=== PATIENT | female | born 1970 | race Caucasian/White ===

== ENCOUNTER 2023-04-23 12:51 | Emergency (ER) | payer OTHER, MEDICAID, SELFPAY ==
[2023-04-23] VITALS (9 sets, daily range): BP systolic 133–145; BP diastolic 77–99; PULSE 60–77; RESP 14–16; TEMP 36.4; O2SAT 92–99; BMI 16.1
--- NOTE | 2023-04-23 12:59 | DI.CT.S_ITS ---
PROCEDURE: CT LE LT W CON INDICATIONS: knee injury/pain - left TECHNIQUE: Noncontrast 1-1.5 mm axial sections acquired from the mid-patella to the proximal tibia, with coronal and sagittal reformats. COMPARISON: None. FINDINGS: Image quality: Excellent. Bones: Acute comminuted fracture involving proximal tibia is seen with fracture lines extending to both medial and lateral tibial plateau. Fracture line is also seen extending to involve base of tibial spine near ACL and PCL insertions. There is significant posterior and inferior displacement of the lateral tibial plateau fragment with up to 1.2 cm depression at lateral tibial plateau fracture site. There is also slight medial displacement of the medial tibial plateau fractured fragment without significant depression. No other fracture is seen. No Soft tissues: There is moderate amount of lipohemarthrosis. No calcified intra-articular loose bodies. No full-thickness quadriceps tendon or patellar tendon rupture. ACL is not well seen on this study. The PCL is grossly intact. No abnormal soft tissue calcifications are seen. IMPRESSION: 1. Acute comminuted and displaced proximal tibial fracture as described in detail above. 2. No other fracture or dislocation. 3. Moderate lipohemarthrosis. No abnormal soft tissue calcifications. Dictated by: Grant Gurrola M.D. on 04/23/2023 at 15:07 Approved by: Grant Gurrola M.D. on 04/23/2023 at 15:10
--- NOTE | 2023-04-23 13:01 | ED.EXTPRO ---
HPI - Extremity Problem General Chief complaint: Extremity Injury, Lower Stated complaint: Fall, 2-3 feet, left leg injury Time Seen by Provider: 04/23/23 12:57 History of Present Illness HPI Narrative: Patient brought in by ambulance from home. Complains of left anterior knee pain and swelling and bruising. Patient was on a 3-4 foot ladder, working in the rain, lost her balance and fell to the right, however she thinks her left foot and leg got stuck on the ladder and she fell to the right, twisting her knee. She does not recall landing on her left knee. Patient received 10 mg of morphine intramuscular by EMS. Patient position of comfort is in a left knee flexed at 90? with pillows underneath it. Hip is flexed as well 90? upward. Shoe and sock off. Left hip to toes exposed. Patient denies any other pain or injury, no head pain neck pain back pain abdominal pain. Related Data Allergies Allergy/AdvReac Type Severity Reaction Status Date / Time No Known Drug Allergies Allergy Verified 04/23/23 13:02 Review of Systems Review of Systems Narrative: GENERAL: negative chills, fatigue, malaise, fever, sweats. HEENT: negative sinus pain, ear pain, sore throat RESPIRATORY: negative dyspnea, cough CARDIOVASCULAR: negative chest pain, palpitations GASTROINTESTINAL: negative nausea, vomiting, abdominal pain : negative dysuria, frequency, hematuria MUSCULOSKELETAL: Positive muscle or bony pain SKIN: negative rash, skin lesions NEUROLOGIC: negative weakness, numbness ROS Unobtainable: All systems reviewed & are unremarkable except as noted in HPI and below Patient History Social History Smoking Status: Never smoker Exam Narrative Exam Narrative: GENERAL: in no distress, not toxic not dyspneic HEAD: Normocephalic. Atraumatic EXTREMITIES: No gross deformities. Left lower extremity exposed. They are diffuse anterior bruising to the knee. Diffuse tenderness. There is moderate edema anteriorly. Nontender ankle and foot and hip. Able to flex and extend at the ankle without pain. Foot is warm soft and pink strong pedal pulse light touch intact to foot and toes. Able to wiggle toes. At this time patient position of comfort is with leg in the air and knee at 90? with blankets underneath. Patient will need better pain control to bring knee to extension. NEURO: AOx4. SKIN: Warm and dry PSYCH: Not anxious, is cooperative Initial Vital Signs Initial Vital Signs: Vital Signs Temperature 97.5 F L 04/23/23 12:55 Pulse Rate 69 04/23/23 12:55 Respiratory Rate 14 04/23/23 12:55 Blood Pressure 141/90 H 04/23/23 12:55 Pulse Oximetry 99 04/23/23 12:55 Oxygen Delivery Method Room Air 04/23/23 12:55 Procedures Orthopedic Splinting/Casting Injury #1: Time of procedure: 16:30 Side: left Lower Extremity Injury Location: knee Lower Extremity Immobilizer: knee immobilizer Post splinting neuro exam: intact and no change Post splinting vascular exam: no change Placed by: Nursing Course Orders Ordered: ED Orders 04/23/23 12:59 CT LE LT wo con Stat 04/23/23 15:30 COVID19 - ADMIT (MEMORANDUM STATEMENT CLERK swab/PCR) Stat 04/23/23 15:48 COVID19 -Nasal RAPID Stat Discontinued Medications Fentanyl (Fentanyl 100 Mcg/2 Ml Inj) 100 mcg IV NOW ONE Stop: 04/23/23 13:33 Last Admin: 04/23/23 13:36 Dose: 100 mcg Documented By: TC Fentanyl (Fentanyl 100 Mcg/2 Ml Inj) 100 mcg IV NOW ONE Stop: 04/23/23 16:13 Last Admin: 04/23/23 16:17 Dose: 100 mcg Documented By: TC Hydromorphone HCl (Hydromorphone 1 Mg Inj) 1 mg IV NOW ONE Stop: 04/23/23 12:59 Last Admin: 04/23/23 13:22 Dose: 1 mg Documented By: TC Ondansetron HCl (Ondansetron 4 Mg Odt) 4 mg SL NOW ONE Stop: 04/23/23 12:59 Last Admin: 04/23/23 13:22 Dose: 4 mg Documented By: TC Vital Signs Vital signs: Vital Signs - 8 hr 04/23/23 12:55 04/23/23 12:55 04/23/23 12:55 Temperature 97.5 F L Pulse Rate 69 66 Respiratory Rate 14 Blood Pressure 141/90 H 141/90 H Pulse Oximetry 99 97 Oxygen Delivery Method Room Air 04/23/23 14:14 04/23/23 14:15 04/23/23 14:15 Temperature Pulse Rate 60 60 Respiratory Rate Blood Pressure 133/85 Pulse Oximetry 95 95 Oxygen Delivery Method 04/23/23 14:30 04/23/23 15:00 04/23/23 15:30 Temperature Pulse Rate 63 61 60 Respiratory Rate 16 16 Blood Pressure 134/84 134/99 H 141/77 H Pulse Oximetry 92 97 97 Oxygen Delivery Method 04/23/23 16:00 04/23/23 16:00 04/23/23 16:30 Temperature Pulse Rate 76 77 Respiratory Rate 16 16 Blood Pressure 145/79 H 140/81 Pulse Oximetry 93 Oxygen Delivery Method Room Air 04/23/23 16:30 04/23/23 16:47 Temperature Pulse Rate 70 Respiratory Rate 16 Blood Pressure 140/81 Pulse Oximetry 94 Oxygen Delivery Method Room Air MDM - Extremity (Nontraumatic) Lab Data Labs: Lab Results 04/23/23 Range/Units 15:48 SARS-CoV-2 (PCR) Negative (Negative) Imaging Data Extremity x-ray #1: Radiologist's Impression: [place] [address] CT Scan Report Signed Patient: Jeni Fan MR#: [id number] : 1970 Acct:[id number] Age/Sex: 52 / F Date of Service: 04/23/23 Loc: ED Accession Number: [id number] Procedure: CT LE LT wo con Ordering Provider: Kenan Delgado MD PROCEDURE: CT LE LT W CON INDICATIONS: knee injury/pain - left TECHNIQUE: Noncontrast 1-1.5 mm axial sections acquired from the mid-patella to the proximal tibia, with coronal and sagittal reformats. COMPARISON: None. FINDINGS: Image quality: Excellent. Bones: Acute comminuted fracture involving proximal tibia is seen with fracture lines extending to both medial and lateral tibial plateau. Fracture line is also seen extending to involve base of tibial spine near ACL and PCL insertions. There is significant posterior and inferior displacement of the lateral tibial plateau fragment with up to 1.2 cm depression at lateral tibial plateau fracture site. There is also slight medial displacement of the medial tibial plateau fractured fragment without significant depression. No other fracture is seen. No Soft tissues: There is moderate amount of lipohemarthrosis. No calcified intra-articular loose bodies. No full-thickness quadriceps tendon or patellar tendon rupture. ACL is not well seen on this study. The PCL is grossly intact. No abnormal soft tissue calcifications are seen. IMPRESSION: 1. Acute comminuted and displaced proximal tibial fracture as described in detail above. 2. No other fracture or dislocation. 3. Moderate lipohemarthrosis. No abnormal soft tissue calcifications. Dictated by: Grant Gurrola M.D. on 04/23/2023 at 15:07 Approved by: Grant Gurrola M.D. on 04/23/2023 at 15:10 [facility] Narrative Medical decision making narrative: Patient brought in by ambulance from home. Complains of left anterior knee pain and swelling and bruising. Patient was on a 3-4 foot ladder, working in the rain, lost her balance and fell to the right, however she thinks her left foot and leg got stuck on the ladder and she fell to the right, twisting her knee. She does not recall landing on her left knee. Patient received 10 mg of morphine intramuscular by EMS. Patient position of comfort is in a left knee flexed at 90? with pillows underneath it. Hip is flexed as well 90? upward. Shoe and sock off. Left hip to toes exposed. Patient denies any other pain or injury, no head pain neck pain back pain abdominal pain. After history and exam Dilaudid Zofran CT left knee MDM CC: Left knee pain Complicating co-morbidities: None, patient not on blood thinners Data collected from: Patient and EMS Medical records reviewed: No recent visit for this complaint Differential considered: Includes but not limited to patellar fracture/dislocation, knee fracture/dislocation, internal ligamentous injury knee sprain knee strain Exam documented above, pertinent findings include: Limited range of motion at the knee, diffuse ecchymosis of the anterior knee Imaging studies independently reviewed: CT left lower extremity/knee medial/lateral tibial plateau fractures Consultations: 3:48 p.m.. Spoke with [facility] Dr. Nielson, he will accept patient Treatments: Dilaudid Zofran fentanyl Re-evaluations: 3:50 p.m.. Spoke with patient and . Pain is controlled. They understand this is a complicated needs higher level of care surgical intervention. They do understand need to transfer to [facility] Emergency Department Discussion: Appropriate for transfer higher level of care for orthopedic care. Diagnosis: Tibial plateau fracture Discharge Plan Departure Patient Disposition: [facility] Clinical Impression: Fracture of tibial plateau, closed Qualifiers: Encounter type: initial encounter Laterality: left Qualified Code(s): S82.142A - Displaced bicondylar fracture of left tibia, initial encounter for closed fracture Referrals: Miscellaneous,DoctorMD [Primary Care Provider] -
[2023-04-23] MEDS: HYDROMORPHONE 1 MG INJ IV (13:22)
[2023-04-23] MEDS: ONDANSETRON 4 MG ODT SL (13:22)
[2023-04-23] MEDS: fentaNYL 100 MCG/2 ML INJ IV ×2 (13:36→16:17)
--- NOTE | 2023-04-23 15:32 | PC.NURSE ---
RN discussed with patient the possibility of needing a Moon catheter due to the severity of fracture and the pain that may occur during moving while trying to get on and off bed chaudhry. Patient would like to wait until she has knee immobilizer placed to determine weather or not is would be possible to use bed cahudhry.
[2023-04-23 16:10] LABS: COVID19 -Nasal RAPID Negative (Negative)
== END 2023-04-23 17:00 | disposition short-term general hospital (02) ==
PROVIDERS: Emergency Provider Emergency Medicine
DX: S82.142A Displaced bicondylar fracture of left tibia, initial encounter for closed fracture (principal); W11.XXXA Fall on and from ladder, initial encounter; Z20.822 Contact with and (suspected) exposure to COVID-19
CPT/HCPCS: 73700; 87635; 96374; 96375; 96376; 99284; C9803; J1170; J3010

== ENCOUNTER 2023-05-20 18:00 | Emergency (ER) | payer OTHER, MEDICAID, SELFPAY ==
--- NOTE | 2023-05-20 18:13 | ED_ITS ---
HPI - Allergic Reaction <Sj Tellez PA-C - Last Filed: 05/20/23 18:38> General Chief complaint: Allergic Reaction Stated complaint: POSSIBLE REACTION TO MEDICATION Time Seen by Provider: 05/20/23 18:13 History of Present Illness HPI narrative: This is a 52-year-old female presents emergency department due to possible allergic reaction and Robaxin she was prescribed. She was seen at [facility] for tibial plateau fracture a month ago and was discharged with Robaxin. She is been taking for the last month complications but after taking last night states that tongue felt swollen. This quickly improved with the in treatment. Due took another Robaxin and she states that the other half her tongue swelled which also improved without treatment quickly. She does state that she tried a new not snack as well as apple. She reports a mild rash to the back of her head with some itching. Denies any shortness of breath, difficulty breathing or swallowing. Related Data Home Medications Medication Instructions Recorded Confirmed acetaminophen 500 mg tablet 1,000 mg PO Q6HR 05/20/23 05/22/23 Previous Rx's Medication Instructions Recorded diphenhydramine HCl 25 mg capsule 50 mg (2 x 25 mg) PO TID PRN 05/20/23 (Benadryl) allergic reaction #6 caps prednisone 20 mg tablet 40 mg (2 x 20 mg) PO DAILY #6 tabs 05/22/23 Allergies Allergy/AdvReac Type Severity Reaction Status Date / Time methocarbamol [From Robaxin] Allergy Swelling Verified 05/22/23 11:32 of Lip/Tongue/Throat Review of Systems <Sj Tellez PA-C - Last Filed: 05/20/23 18:38> Review of Systems Narrative: GENERAL: Denies chills, fatigue, malaise, fever, sweats. HEENT: Denies sinus pain, ear pain, sore throat, difficulty swallowing, dizziness. RESPIRATORY: Denies dyspnea, cough, wheezing, hemoptysis, sputum. CARDIOVASCULAR: Denies chest pain, palpitations, orthopnea, edema, GASTROINTESTINAL: Denies nausea, vomiting, abdominal pain, diarrhea, constipation, melena. : Denies dysuria, frequency, incontinence, hematuria, urinary retention. MUSCULOSKELETAL: denies weakness, joint pain, or bony pain SKIN: Reports rash NEUROLOGIC: Denies weakness, headache, numbness, change in speech, confusion, seizures, incoordination. PSYCHIATRIC: No concerning psychosocial issues. 12 point review of systems is negative except for those stated above Patient History <Sj Tellez PA-C - Last Filed: 05/20/23 18:38> Social History Smoking Status: Never smoker Smoking Status: Never smoker alcohol intake frequency: 0-2 drinks per day Substance Use Type: does not use Exam <Sj Tellez PA-C - Last Filed: 05/20/23 18:38> Narrative Exam Narrative: GENERAL: Well-developed patient, in mild distress. HEAD: Atraumatic. Normocephalic. EYES: Pupils equal round and reactive. Extraocular motions intact. No scleral icterus. No injection or drainage. ENT: Nose without bleeding, purulent drainage. Throat without erythema, tonsillar hypertrophy or exudate. Airway patent. NECK: Trachea midline. Non tender CARDIOVASCULAR: Regular rate and rhythm without murmurs, gallops, or rubs. RESPIRATORY: Clear to auscultation. Breath sounds equal bilaterally. No wheezes, rales, or rhonchi. GASTROINTESTINAL: Abdomen soft, non-tender, nondistended. EXTREMITIES: No edema or joint tenderness. BACK: Nontender without deformity or crepitance. No flank tenderness. NEURO: AOx3. SKIN: Very small amount of erythema to the posterior neck Initial Vital Signs Initial Vital Signs: Vital Signs Temperature 98 F 05/20/23 18:17 Pulse Rate 101 H 05/20/23 18:17 Respiratory Rate 18 05/20/23 18:17 Blood Pressure 181/110 H 05/20/23 18:17 Pulse Oximetry 99 05/20/23 18:17 Oxygen Delivery Method Room Air 05/20/23 18:17 <Kenan Delgado MD - Last Filed: 06/08/23 07:48> Initial Vital Signs Initial Vital Signs: Vital Signs Temperature 98 F 05/20/23 18:17 Pulse Rate 101 H 05/20/23 18:17 Respiratory Rate 18 05/20/23 18:17 Blood Pressure 181/110 H 05/20/23 18:17 Pulse Oximetry 99 05/20/23 18:17 Oxygen Delivery Method Room Air 05/20/23 18:17 Course <Sj Tellez PA-C - Last Filed: 05/20/23 18:38> Orders Ordered: Discontinued Medications Diphenhydramine HCl (Diphenhydramine 25 Mg Tablet) 25 mg PO NOW ONE Stop: 05/20/23 18:27 Last Admin: 05/20/23 18:30 Dose: 25 mg Documented By: ES Vital Signs Vital signs: Vital Signs - 8 hr 05/20/23 18:17 Temperature 98 F Pulse Rate 101 H Respiratory Rate 18 Blood Pressure 181/110 H Pulse Oximetry 99 Oxygen Delivery Method Room Air <Kenan Delgado MD - Last Filed: 06/08/23 07:48> Orders Ordered: Discontinued Medications Diphenhydramine HCl (Diphenhydramine 25 Mg Tablet) 25 mg PO NOW ONE Stop: 05/20/23 18:27 Last Admin: 05/20/23 18:30 Dose: 25 mg Documented By: ES Vital Signs Vital signs: Vital Signs - 8 hr 05/20/23 18:17 Temperature 98 F Pulse Rate 101 H Respiratory Rate 18 Blood Pressure 181/110 H Pulse Oximetry 99 Oxygen Delivery Method Room Air MDM - Allergic Reaction <Sj Tellez PA-C - Last Filed: 05/20/23 18:38> MDM Narrative Medical decision making narrative: MDM * differential diagnosis includes but not limited to allergic reaction * Prior records reviewed: Patient was seen here a month ago to a tibial plateau fracture. * My lab interpretation: None obtained * My imgaing interpretation: None obtained * Clinical Decision Rules/Scores evaluated: None * Independent discussions with: None ED Course: This is a 52-year-old female presents for department due to possible allergic reaction after taking Robaxin. Her symptoms of quickly improve without treatment. We will give a 1 time dose of Benadryl here as well as instructions to take Benadryl for next 24 hours at home. No difficulty breathing or swallowing. Recommended she stopped taking the Robaxin which patient feels alber ropriate. Shared Decision Making: Discussed plan with patient who is comfortable with the plan Social Considerations: None Disposition: Discharged to home Discharge Plan Departure Patient Disposition: Home Clinical Impression: Allergic reaction Activity Restrictions/Additional Instructions: Thank you for coming to the [facility] Emergency Department today. Seems that you may have had an allergic reaction to the Robaxin your prescribed. I recommend you start taking. Please take the Benadryl as prescribed. This is the medication to [facility] in her [place]. It is 50 mg 3 times a day. You may also take [id number]. I hope you feel better soon. Please follow up with your primary care provider within a week if your symptoms continue. If you do not have a primary care provider please contact the [facility] Resource line at [phone]. They will ask some questions about your medical history and help you get set up with a provider in the community. Prescriptions: New diphenhydramine HCl [Benadryl] 25 mg capsule 50 mg PO TID PRN (Reason: allergic reaction) Qty: 6 0RF No Action acetaminophen 500 mg tablet 1,000 mg PO Q6HR prednisone 20 mg tablet 40 mg PO DAILY Qty: 6 0RF Referrals: Miscellaneous,DoctorMD [Primary Care Provider] - Stand Alone Forms: Patient Portal/API ED Sign-out <Kenan Delgado MD - Last Filed: 06/08/23 07:48> [facility]: I was immediately available in the department for consultation. This documentation has been reviewed and I agree with assessment and plan. Supervised by Kenan Delgado MD
[2023-05-20 18:17] VITALS: BP 181/110; PULSE 101; RESP 18; TEMP 36.6; O2SAT 99; BMI 30.5
[2023-05-20] MEDS: diphenhydrAMINE 25 MG TABLET PO (18:30)
== END 2023-05-20 19:00 | disposition home or self-care (01) ==
PROVIDERS: Emergency Provider Physician Assistant Medical
DX: T78.40XA Allergy, unspecified, initial encounter (principal)
CPT/HCPCS: 99283

== ENCOUNTER 2023-05-22 11:06 | Emergency (ER) | payer OTHER, MEDICAID, SELFPAY ==
[2023-05-22 11:22] VITALS: BP 129/81; PULSE 94; RESP 20; TEMP 36.8; O2SAT 97; BMI 31.1
[2023-05-22 11:37] VITALS: PULSE 96; O2SAT 98
--- NOTE | 2023-05-22 12:11 | ED.ALLEREA ---
HPI - Allergic Reaction <Yamile Quiñones PA-C - Last Filed: 05/22/23 15:37> General Chief complaint: Allergic Reaction Stated complaint: swelling of face poss alergic reaction Time Seen by Provider: 05/22/23 11:34 Source: patient and family Mode of arrival: Family Vehicle History of Present Illness HPI narrative: Patient is a 52-year-old female who presents with swelling around her mouth and an itchy rash x several days. She recently had a repair of a tibial plateau fracture at [facility] about 1 month ago and has been taking several medications since then for pain. She was seen in the emergency room 2 days ago and diagnosed with an allergic reaction, thought to be due to Robaxin, which she discontinued and she is been taking Benadryl 3 times a day. Despite this, she woke up this morning with significant swelling on the left side of her jaw and over her upper lip. Because the rash has continued, she stopped taking her Tylenol and gabapentin thinking these may be contributing to the rash. The only medication she is been taking now is Benadryl and 2 baby aspirin daily, which was advised by her Orthopedic surgery team. She denies any shortness of breath, difficulty breathing, scratchy throat or nausea. She is very frustrated uncomfortable because of the constant itching and worried about the swelling in her face. Related Data Home Medications Medication Instructions Recorded Confirmed acetaminophen 500 mg tablet 1,000 mg PO Q6HR 05/20/23 05/22/23 Previous Rx's Medication Instructions Recorded diphenhydramine HCl 25 mg capsule 50 mg (2 x 25 mg) PO TID PRN 05/20/23 (Benadryl) allergic reaction #6 caps prednisone 20 mg tablet 40 mg (2 x 20 mg) PO DAILY #6 tabs 05/22/23 Allergies Allergy/AdvReac Type Severity Reaction Status Date / Time methocarbamol [From Robaxin] Allergy Swelling Verified 05/22/23 11:32 of Lip/Tongue/Throat Review of Systems <Yamile Quiñones PA-C - Last Filed: 05/22/23 15:37> Review of Systems ROS Unobtainable: All systems reviewed & are unremarkable except as noted in HPI and below Patient History <Yamile Quiñones PA-C - Last Filed: 05/22/23 15:37> Social History Smoking Status: Never smoker Smoking Status: Never smoker alcohol intake frequency: 0-2 drinks per day Substance Use Type: does not use Exam <Yamile Quiñones PA-C - Last Filed: 05/22/23 15:37> Narrative Exam Narrative: GENERAL: 52 year old patient appears stated age. Well-developed patient, in mild distress. NEURO: AOx3. HEAD: Atraumatic. Normocephalic. EYES: Pupils equal round and reactive. Extraocular motions intact. No scleral icterus. No injection or drainage. ENT: Nose without bleeding or purulent drainage. Throat without erythema, tonsillar hypertrophy or exudate. Airway patent. Swelling over the left lower jaw and over the left upper lip. No tongue swelling, no intraoral lesions. NECK: Trachea midline. Non tender CARDIOVASCULAR: Regular rate and rhythm without murmurs, gallops, or rubs. RESPIRATORY: Clear to auscultation. Breath sounds equal bilaterally. No wheezes, rales, or rhonchi. EXTREMITIES: No edema or joint tenderness. SKIN: Urticarial rash over low back down to buttocks, urticarial rash at hairline of posterior neck. Well-healed surgical scars surrounding left knee. Resolving ecchymosis and diffuse edema of the left lower extremity. No calf tenderness or swelling. Initial Vital Signs Initial Vital Signs: Vital Signs Temperature 98.3 F 05/22/23 11:22 Pulse Rate 94 H 05/22/23 11:22 Respiratory Rate 20 05/22/23 11:22 Blood Pressure 129/81 05/22/23 11:22 Pulse Oximetry 97 05/22/23 11:22 Oxygen Delivery Method Room Air 05/22/23 11:22 <Rhea Wheeler DO - Last Filed: 05/23/23 07:37> Initial Vital Signs Initial Vital Signs: Vital Signs Temperature 98.3 F 05/22/23 11:22 Pulse Rate 94 H 05/22/23 11:22 Respiratory Rate 20 05/22/23 11:22 Blood Pressure 129/81 05/22/23 11:22 Pulse Oximetry 97 05/22/23 11:22 Oxygen Delivery Method Room Air 05/22/23 11:22 Course <Yamile Quiñones PA-C - Last Filed: 05/22/23 15:37> Orders Ordered: Discontinued Medications Prednisone (Prednisone 20 Mg Tablet) 40 mg PO NOW ONE Stop: 05/22/23 12:13 Last Admin: 05/22/23 12:15 Dose: 40 mg Documented By: BS Vital Signs Vital signs: Vital Signs - 8 hr 05/22/23 11:22 05/22/23 11:37 05/22/23 12:32 Temperature 98.3 F Pulse Rate 94 H 96 H 83 Respiratory Rate 20 16 Blood Pressure 129/81 Pulse Oximetry 97 98 99 Oxygen Delivery Method Room Air Room Air Room Air <Rhea Wheeler DO - Last Filed: 05/23/23 07:37> Orders Ordered: Discontinued Medications Prednisone (Prednisone 20 Mg Tablet) 40 mg PO NOW ONE Stop: 05/22/23 12:13 Last Admin: 05/22/23 12:15 Dose: 40 mg Documented By: BS Vital Signs Vital signs: Vital Signs - 8 hr 05/22/23 11:22 05/22/23 11:37 05/22/23 12:32 Temperature 98.3 F Pulse Rate 94 H 96 H 83 Respiratory Rate 20 16 Blood Pressure 129/81 Pulse Oximetry 97 98 99 Oxygen Delivery Method Room Air Room Air Room Air MDM - Allergic Reaction <Yamile Quiñones PA-C - Last Filed: 05/22/23 15:37> MDM Narrative Medical decision making narrative: Multiple etiologies for patient's symptoms considered including, but not limited to: Drug reaction, other allergy, idiopathic urticaria. After much discussion, aspirin seems the most likely culprit to be causing an allergic type reaction with an urticarial rash and angioedema. There is no evidence of airway compromise. I advised patient to stop taking the aspirin and contact her orthopedic clinic to see if they would like her to take a different blood thinner medication. I also prescribed a short course of oral steroids and advised her to take cetirizine twice daily for several days until this improves. I doubt that the Tylenol or gabapentin were causing these symptoms and she may resume them if she desires for pain control of her surgical site. Strict return precautions advised. Patient's symptoms improved over duration of stay with above-stated therapies. Findings and discharge diagnosis discussed with patient/family followed by verbalization of understanding Return precautions discussed with patient/family whom verbalize understanding of diagnosis and plan Discharge Plan Departure Patient Disposition: Home Clinical Impression: Urticaria Allergic reaction Qualifiers: Encounter type: subsequent encounter Qualified Code(s): T78.40XD - Allergy, unspecified, subsequent encounter Angioedema Qualifiers: Encounter type: initial encounter Qualified Code(s): T78.3XXA - Angioneurotic edema, initial encounter Instructions: DI for Anaphylaxis, DI for Hives Activity Restrictions/Additional Instructions: *You have been diagnosed with allergic reaction. I suspect this is due to the aspirin you have been taking. I would stop taking the aspirin and call your orthopedic doctor today and notify them that you were seen in the emergency room; the ER provider thinks this is what was causing your symptoms. Ask if they would like you to take a different blood thinner medicine. I have also given you a dose of steroids while in the emergency room and we will send 3 more days to your pharmacy. Steroids are a good anti-inflammatory medicine and will help decrease the antihistamine reaction that is going on. You should also take Zyrtec 10 mg twice a day for the next 3 days and then once a day after that until the hives and itching has resolved. I believe it is unlikely that the gabapentin or Tylenol are causing the symptoms so if you would like to start taking them again for the pain in your leg you are welcome to. If you develop any wheezing, shortness of breath or difficulty breathing, please return emergently to the ER. *What to do: *Please continue to take your regular medications as directed. [x ] New medication prescriptions sent to your pharmacy: [facility] [ ] New medication written as a paper prescription [ ] No new medications given *Please follow up with your primary care provider in 2-3 days, call for an appointment. Let them know you were seen in the Emergency Department and that we ask that you be seen in follow up. We will electronically transmit a record of today's note if your PCP is in our system *If you do not have a primary care provider please contact the [facility] Resource line at [phone]. They will ask some questions about your medical history and help get you set up with a doctor in the community. *Return to Emergency Department if you should have any new, worsening or concerning symptoms, such as [fever greater than 101 F, shaking chills, worsening pain, persistent vomiting or other concerning symptoms]. Prescriptions: New prednisone 20 mg tablet 40 mg PO DAILY Qty: 6 0RF Discontinued aspirin 81 mg tablet,delayed release (DR/EC) 81 mg PO BID No Action acetaminophen 500 mg tablet 1,000 mg PO Q6HR diphenhydramine HCl [Benadryl] 25 mg capsule 50 mg PO TID PRN (Reason: allergic reaction) Qty: 6 0RF Referrals: Miscellaneous,Doctor, MD [Primary Care Provider] - Stand Alone Forms: Patient Portal/API ED Sign-out <Rhea Wheeler DO - Last Filed: 05/23/23 07:37> Cosign ED Attending Cosskyeature Attestation: I was immediately available in the department for consultation.
[2023-05-22] MEDS: predniSONE 20 MG TABLET 40 MG PO (12:15)
[2023-05-22 12:32] VITALS: PULSE 83; RESP 16; O2SAT 99
== END 2023-05-22 12:33 | disposition home or self-care (01) ==
PROVIDERS: Emergency Provider Physician Assistant
DX: T78.40XA Allergy, unspecified, initial encounter (principal); T78.3XXA Angioneurotic edema, initial encounter
CPT/HCPCS: 99283

== ENCOUNTER 2023-07-24 19:13 | Emergency (ER) | payer OTHER, MEDICAID, SELFPAY ==
[2023-07-24] VITALS (11 sets, daily range): BP systolic 129–155; BP diastolic 88–101; PULSE 70–86; RESP 16–34; TEMP 36.2–36.6; O2SAT 96–99; BMI 31.1
--- NOTE | 2023-07-24 19:23 | ED.GENADULT ---
HPI - General Adult General Chief complaint: Chest Pain Stated complaint: chest pain Time Seen by Provider: 07/24/23 19:17 History of Present Illness HPI narrative: 52-year-old female presents with her in the chief complaint retrosternal chest pressure that has been going off and on since about 4:00 p.m. tonight. She states that she was resting when she developed a sharp and stabbing central chest pain that feels like she has a trapped burp. She states that a successful belch seemed like it resolved her symptoms at least once or twice earlier. Her last episode of discomfort was in the car ride on the way over. She denies any exertional symptoms or fatigue. She denies other symptoms such as dizziness, weakness or lightheadedness. No nausea, vomiting, no diaphoresis. She has been relatively immobile since fracturing her left lower extremity in March, in fact she has an appointment with [facility] tomorrow to determine her ability to weight bear again. She denies any pain or swelling in 1 leg or the other. She denies any recent travel or history of blood clot. Related Data Home Medications Medication Instructions Recorded Confirmed acetaminophen 500 mg tablet 1,000 mg PO Q6HR 05/20/23 05/22/23 Previous Rx's Medication Instructions Recorded diphenhydramine HCl 25 mg capsule 50 mg (2 x 25 mg) PO TID PRN 05/20/23 (Benadryl) allergic reaction #6 caps prednisone 20 mg tablet 40 mg (2 x 20 mg) PO DAILY #6 tabs 05/22/23 Allergies Allergy/AdvReac Type Severity Reaction Status Date / Time acetaminophen [From Tylenol] Allergy Verified 07/24/23 19:22 aspirin Allergy Verified 07/24/23 19:22 ibuprofen Allergy Verified 07/24/23 19:22 methocarbamol [From Robaxin] Allergy Swelling Verified 07/24/23 19:22 of Lip/Tongue/Throat naproxen Allergy Verified 07/24/23 19:22 oxycodone Allergy Swelling Verified 07/24/23 19:37 of Lip/Tongue/Throat gabapentin AdvReac Verified 07/24/23 19:22 Review of Systems Review of Systems Narrative: GENERAL: Denies chills, fatigue, malaise, fever, sweats. HEENT: Denies sinus pain, ear pain, sore throat, difficulty swallowing, dizziness. RESPIRATORY: Denies dyspnea, cough, wheezing, hemoptysis, sputum. CARDIOVASCULAR: See HPI GASTROINTESTINAL: Denies nausea, vomiting, abdominal pain, diarrhea, constipation, melena. : Denies dysuria, frequency, incontinence, hematuria, urinary retention. MUSCULOSKELETAL: denies weakness, joint pain, or bony pain SKIN: Denies rash, skin lesions, or other NEUROLOGIC: Denies weakness, headache, numbness, change in speech, confusion, seizures, incoordination. PSYCHIATRIC: No concerning psychosocial issues. 12 point review of systems is negative except for those stated above Patient History Social History Smoking Status: Never smoker Smoking Status: Never smoker alcohol intake frequency: 0-2 drinks per day Substance Use Type: does not use Exam Narrative Exam Narrative: GENERAL: [52] year old patient appears stated age. Well-developed patient, in mild distress. HEAD: Atraumatic. Normocephalic. EYES: Pupils equal round and reactive. Extraocular motions intact. No scleral icterus. No injection or drainage. ENT: Nose without bleeding, purulent drainage. Throat without erythema, tonsillar hypertrophy or exudate. Airway patent. NECK: Trachea midline. Non tender CARDIOVASCULAR: Regular rate and rhythm without murmurs, gallops, or rubs. RESPIRATORY: Clear to auscultation. Breath sounds equal bilaterally. No wheezes, rales, or rhonchi. GASTROINTESTINAL: Abdomen soft, non-tender, nondistended. EXTREMITIES: No edema or joint tenderness. BACK: Nontender without deformity or crepitance. No flank tenderness. NEURO: AOx3. SKIN: No rash or erythema of visible areas Initial Vital Signs Initial Vital Signs: Vital Signs Temperature 97.2 F L 07/24/23 19:15 Pulse Rate 86 07/24/23 19:15 Respiratory Rate 20 07/24/23 19:15 Blood Pressure 155/98 H 07/24/23 19:15 Pulse Oximetry 98 07/24/23 19:15 Oxygen Delivery Method Room Air 07/24/23 19:15 Course Orders Ordered: ED Orders 07/24/23 19:23 EKG-12 Lead Stat 07/24/23 20:15 Complete Blood Count AUTO DIFF Stat Comprehensive Metabolic Panel Stat D Dimer Stat Lipase Stat Magnesium Stat Troponin & CK Cardiac Panel Stat 07/24/23 20:42 CT angio chest PE protocol Stat Discontinued Medications Al Hydrox/Mg Hydrox/Simethicone 20 ml/ Lidocaine HCl 15 ml 0 ml PO NOW ONE Stop: 07/24/23 19:23 Last Admin: 07/24/23 19:41 Dose: 35 ml Documented By: ALPA Vital Signs Vital signs: Vital Signs - 8 hr 07/24/23 20:00 07/24/23 20:00 07/24/23 20:30 Temperature Pulse Rate 78 Respiratory Rate 33 H Blood Pressure 146/89 H 150/99 H Pulse Oximetry 97 Oxygen Delivery Method Room Air 07/24/23 20:30 07/24/23 21:13 07/24/23 21:30 Temperature Pulse Rate 78 79 Respiratory Rate 34 H 24 Blood Pressure 147/101 H Pulse Oximetry 97 97 Oxygen Delivery Method Room Air 07/24/23 21:30 07/24/23 22:00 07/24/23 22:00 Temperature Pulse Rate 78 80 Respiratory Rate 22 22 Blood Pressure 134/91 H Pulse Oximetry 97 96 Oxygen Delivery Method 07/24/23 22:30 07/24/23 22:30 07/24/23 23:00 Temperature Pulse Rate 80 76 Respiratory Rate 16 18 Blood Pressure 129/88 Pulse Oximetry 96 Oxygen Delivery Method Room Air 07/24/23 23:04 Temperature 97.8 F Pulse Rate 70 Respiratory Rate 16 Blood Pressure 129/88 Pulse Oximetry 99 Oxygen Delivery Method Room Air Medical Decision Making Lab Data 07/24/23 20:15 07/24/23 20:15 Labs: Lab Results 07/24/23 Range/Units 20:15 WBC 14.8 H (4.5-11.0) X10^3/uL RBC 5.63 H (4.0-5.2) X10^6/uL Hgb 13.3 (12.0-16.0) g/dL Hct 41.5 (36-46) % MCV 73.7 L (80-100) fL MCH 23.6 L (26-34) PG MCHC 32.0 (30-36) % RDW 16.7 H (11.6-14.8) % Plt Count 404 H (150-400) X10^3/uL Neut % (Auto) 77.4 H (50-75) % Lymph % (Auto) 13.1 L (25-40) % [place] % (Auto) 7.1 (3-14) % Eos % (Auto) 1.7 L (2-4) % Baso % (Auto) 0.7 (0-2) % Neut # (Auto) 25305 H (4143-7272) /uL Lymph # (Auto) 1900 (3564-2435) /uL [place] # (Auto) 1000 H (0-900) /uL Eos # (Auto) 200 (0-450) /uL Baso # (Auto) 100 (0-100) /uL D-Dimer 2630 H (<500) ng/ml Sodium 137 (137-145) mmol/L Potassium 4.2 (3.4-5.1) mmol/L Chloride 103 (98-107) mmol/L Carbon Dioxide 26 (22-32) mmol/L BUN 17 (7-17) mg/dL Creatinine 0.61 (0.52-1.04) mg/dL Estimated GFR > 60 (>60) mL/min BUN/Creatinine Ratio 27.9 H (6-22) Glucose 100 (70-100) mg/dL Calcium 9.5 (8.4-10.2) mg/dL Magnesium 1.8 (1.6-2.3) mg/dL Total Bilirubin 0.6 (0.2-1.3) mg/dL AST 25 (14-36) IU/L ALT 25 (<35) IU/L Alkaline Phosphatase 86 (38-126) U/L Total Creatine Kinase 31 (30-135) U/L Troponin I < 0.012 (0.01-0.034) ng/mL Total Protein 8.0 (6.3-8.2) g/dL Albumin 4.3 (3.5-5.0) g/dL Globulin 3.7 (1.7-4.1) g/dL Albumin/Globulin Ratio 1.2 (1.0-2.8) Lipase 45 (23-300) U/L ECG Data Interpretation: [1940] EKG is normal sinus rhythm rate [ 79] and free of any signs of ischemia or ectopy. No ST segmental elevation or depression. No T wave inversions MDM Narrative Medical decision making narrative: CC: 52-year-old female presents with episodes of sharp and stabbing central chest pain that comes and goes without obvious provocation or palliation Complicating co-morbidities: Recent orthopedic injury and immobilization Data collected from: Patient Medical records reviewed: Prior notes reviewed in our EMR Differential considered, but not limited to: Esophageal spasm versus reflux versus pancreatitis versus gallbladder disease versus pulmonary embolism versus cardiac ischemia versus other Exam documented above, pertinent findings include: Patient asymptomatic for duration of visit, heart rate regular, lungs clear, abdomen soft and nontender Lab Test results independently reviewed as above. Pertinent findings: Slight leukocytosis of 14.8 with minimal relative left shift, D-dimer significantly elevated at 2630, electrolytes, renal function, LFTs, lipase all within normal Independently reviewed EKG as above Imaging studies independently reviewed: CT angiogram with PE protocol ordered given chest pain, injury, sedentary level of activity and critically elevated D-dimer Treatments: GI Cocktail Re-evaluations: patient feeling better Discussion: Patient with episodes of central epigastric pain without radiation, possibly worse when eating. Multiple diagnoses considered as noted above. D-dimer is critically elevated but CT angiogram shows no evidence of a PE, however does note inflammation of the distal esophagus which is consistent with patient's history and physical exam. Patient's pain is controlled, she is tolerating orals. Stable vital signs. Patient instructed to avoid spicy foods, acidic foods, alcohol, caffeine, nicotine, take omeprazole daily for the next 2 weeks and follow closely with her doctor. Are related to her that she will likely need an EGD. Return precautions discussed Disposition: see below, along with detailed discharge instructions that have been reviewed with patient as well as indications for ED re-evaluation and additional outpatient follow up Discharge Plan Departure Patient Disposition: Home Clinical Impression: Acute epigastric pain, Esophagitis Instructions: DI for Esophagitis Activity Restrictions/Additional Instructions: *You have been diagnosed with [epigastric pain, as we discussed this is most consistent with esophagitis. *What to do: *Please consider taking Omeprazole daily for the next two weeks. You may also take other [id number] medications such as Maalox and Tums as directed. Please avoid spicy foods, acidic foods, caffeine, alcohol, nicotine as this may worsen your symptoms. *Please follow up with your primary care provider in 2-3 days, call for an appointment. Let them know you were seen in the Emergency Department and that we ask that you be seen in follow up. We will electronically transmit a record of today's note if your PCP is in our system. Return to Emergency Department if you should have any new, worsening or concerning symptoms, such as [fever greater than 101 F, shaking chills, worsening pain, persistent vomiting or other bothersome symptoms] Prescriptions: No Action acetaminophen 500 mg tablet 1,000 mg PO Q6HR diphenhydramine HCl [Benadryl] 25 mg capsule 50 mg PO TID PRN (Reason: allergic reaction) Qty: 6 0RF prednisone 20 mg tablet 40 mg PO DAILY Qty: 6 0RF Referrals: Miscellaneous,Doctor, MD [Primary Care Provider] - Stand Alone Forms: Patient Portal/API
[2023-07-24] MEDS: MAG HYDROX/ALUMINUM/SIMETH SUS 20 ML, LIDOCAINE VISCOUS 2% 15 ML PO (19:41)
[2023-07-24 20:24] LABS: Add Manual Diff / Slide Review NO; Basophils Absolute Auto 100 /uL (0-100); Basophils Percent Auto 0.7 % (0-2); Eosinophils Absolute Auto 200 /uL (0-450); Eosinophils Percent Auto 1.7 % (2-4); Hematocrit 41.5 % (36-46); Hemoglobin 13.3 g/dL (12.0-16.0); Lymphocytes Absolute Auto 1900 /uL (1100-4500); Lymphocytes Percent Auto 13.1 % (25-40); Mean Corpuscular Hemoglobin 23.6 PG (26-34); Mean Corpuscular Volume 73.7 fL (80-100); Monocytes Absolute Auto 1000 /uL (0-900); Monocytes Percent Auto 7.1 % (3-14); Neutrophils Absolute Auto 11400 /uL (1500-7000); Neutrophils Percent Auto 77.4 % (50-75); Platelet Count 404 X10^3/uL (150-400); Red Blood Cell Count 5.63 X10^6/uL (4.0-5.2); Red Cell Distribution Width 16.7 % (11.6-14.8); White Blood Cell Count 14.8 X10^3/uL (4.5-11.0)
[2023-07-24 20:34] LABS: D Dimer 2630 ng/ml (<500)
[2023-07-24 20:37] LABS: Alanine Aminotransferase 25 IU/L (<35); Albumin 4.3 g/dL (3.5-5.0); Albumin Globulin Ratio 1.2 (1.0-2.8); Alkaline Phosphatase 86 U/L (38-126); Aspartate Aminotransferase 25 IU/L (14-36); BUN Creatinine Ratio 27.9 (6-22); Bilirubin Total 0.6 mg/dL (0.2-1.3); Blood Urea Nitrogen 17 mg/dL (7-17); Calcium 9.5 mg/dL (8.4-10.2); Carbon Dioxide 26 mmol/L (22-32); Chloride 103 mmol/L (98-107); Creatine Kinase 31 U/L (30-135); Estimated Glomerular Filt Rate > 60 mL/min (>60); Globulin 3.7 g/dL (1.7-4.1); Glucose 100 mg/dL (70-100); HEMOLYSIS 17 (0-50); Lipase 45 U/L (23-300); Magnesium 1.8 mg/dL (1.6-2.3); Potassium 4.2 mmol/L (3.4-5.1); Sodium 137 mmol/L (137-145)
--- NOTE | 2023-07-24 20:42 | DI.CT.S_ITS ---
PROCEDURE: CT ANGIO CHEST PE PROTOCOL INDICATIONS: chest pain, critical dimer, sedentary TECHNIQUE: After the administration of intravenous contrast, 2 mm thick sections acquired from the pulmonary apices to the posterior costophrenic angles. 3-dimensional maximum intensity projection (MIP) coronal and sagittal reformats were then acquired through the thorax. For radiation dose reduction, the following was used: automated exposure control, adjustment of mA and/or kV according to patient size. COMPARISON: None. FINDINGS: Image quality: Diagnostic. Pulmonary arteries: Pulmonary arteries are normal in size, and demonstrate no intraluminal filling defects to suggest central pulmonary embolism. Lower Neck: No enlarged lymph nodes. Thyroid: No thyroid nodules which require sonographic follow up, per consensus guidelines. Axillae: No enlarged lymph nodes. Chest Wall: Unremarkable. Bones: Unremarkable. Lungs and Pleura: No pneumothorax. Small right pleural effusions. There is right basilar consolidation and atelectasis. Heart: Heart size is normal. No pericardial effusion. Thoracic Vessels: No aortic aneurysm. Mediastinum and Tenisha: No enlarged lymph nodes. Esophagus: No wall thickening. Small hiatal hernia. Mild concentric thickening of the distal esophagus at the gastroesophageal junction. Upper Abdomen: Visualized upper abdomen solid organs and bowel loops appear normal. IMPRESSION: 1. No pulmonary embolus. 2. Small right pleural effusion with right basilar consolidation or atelectasis. 3. Small hiatal hernia. Mild concentric thickening of the distal esophagus at the gastroesophageal junction. Consider esophagram or EGD for follow-up Dictated by: Leonardo Campbell M.D. on 07/24/2023 at 22:35 Approved by: Leonardo Campbell M.D. on 07/24/2023 at 22:40
[2023-07-24 20:48] LABS: Troponin I < 0.012 ng/mL (0.01-0.034)
== END 2023-07-24 23:12 | disposition home or self-care (01) ==
PROVIDERS: Emergency Provider Emergency Medicine
DX: R10.13 Epigastric pain (principal); K20.90 Esophagitis, unspecified without bleeding; R07.9 Chest pain, unspecified
CPT/HCPCS: 36415; 71275; 80053; 82550; 83690; 83735; 84484; 85025; 85379; 93005; 99283; 99284; Q9967